=== PATIENT | male | born 1975 | race Caucasian/White ===

== ENCOUNTER 2017-09-18 18:06 | Emergency (ER) | payer MEDICARE, OTHER ==
[~2017-09-18] VITALS: Ht 177.8 cm; Wt 77.0 kg
[~2017-09-18 18:06] MED LIST: BUPR150T26 PO; CLIN-79 PO; TRAZ-143 PO
[2017-09-18 18:40] VITALS: BP 134/90
== END 2017-09-18 21:24 | disposition home or self-care (01) ==
LOC: ER 18:07
DX: S00.83XA Contusion of other part of head, initial encounter (principal); G43.909 Migraine, unspecified, not intractable, without status migrainosus; G89.29 Other chronic pain; F12.10 Cannabis abuse, uncomplicated; F15.10 Other stimulant abuse, uncomplicated; Z59.0 Homelessness; Y04.8XXA Assault by other bodily force, initial encounter; Y93.89 Activity, other specified; Y92.89 Other specified places as the place of occurrence of the external cause; Y99.8 Other external cause status
CPT/HCPCS: 70150; 99284

== ENCOUNTER 2018-09-07 11:04 | Emergency (ER) | payer MEDICARE, MEDICAID ==
[~2018-09-07] VITALS: Ht 177.8 cm; Wt 75.3 kg
[~2018-09-07 11:04] MED LIST changes: -CLIN-79 PO; +CLIN150C8 PO; -TRAZ-143 PO; +TRAZ-218 PO
[2018-09-07 11:19] VITALS: BP 119/73
--- NOTE | 2018-09-07 12:25 | NUR ---
Patient given a new pair of socks, We did not have shoes available for patient.
== END 2018-09-07 12:36 | disposition home or self-care (01) ==
LOC: ER 11:04
DX: M79.672 Pain in left foot (principal); M79.671 Pain in right foot; G43.909 Migraine, unspecified, not intractable, without status migrainosus; G89.29 Other chronic pain; F12.90 Cannabis use, unspecified, uncomplicated; F15.90 Other stimulant use, unspecified, uncomplicated; F14.90 Cocaine use, unspecified, uncomplicated; Z91.018 Allergy to other foods; Z79.899 Other long term (current) drug therapy; Z59.0 Homelessness
CPT/HCPCS: 99281

== ENCOUNTER 2018-12-22 02:59 | Emergency (ER) | payer MEDICARE, MEDICAID ==
[~2018-12-22] VITALS: Ht 177.8 cm; Wt 79.0 kg
[~2018-12-22 02:59] MED LIST changes: -TRAZ-218 PO; +TRAZ-251 PO
[2018-12-22 03:08] VITALS: BP 145/96
--- NOTE | 2018-12-22 03:42 | NUR ---
wound irrigated and dermabond applied to left forehead per Dr. Watson's request
== END 2018-12-22 04:02 | disposition home or self-care (01) ==
LOC: ER 03:00
DX: S01.81XA Laceration without foreign body of other part of head, initial encounter (principal); G43.909 Migraine, unspecified, not intractable, without status migrainosus; G89.29 Other chronic pain; F41.9 Anxiety disorder, unspecified; F31.9 Bipolar disorder, unspecified; F41.0 Panic disorder [episodic paroxysmal anxiety]; F20.9 Schizophrenia, unspecified; F12.90 Cannabis use, unspecified, uncomplicated; F15.90 Other stimulant use, unspecified, uncomplicated; F14.90 Cocaine use, unspecified, uncomplicated; Z59.0 Homelessness; Z88.8 Allergy status to other drugs, medicaments and biological substances; Z79.2 Long term (current) use of antibiotics; Z79.899 Other long term (current) drug therapy; Y04.0XXA Assault by unarmed brawl or fight, initial encounter; Y93.89 Activity, other specified; Y92.89 Other specified places as the place of occurrence of the external cause; Y99.8 Other external cause status
CPT/HCPCS: 12011; 99283

== ENCOUNTER 2019-08-28 14:07 | Emergency (ER) | payer MEDICARE, MEDICAID ==
[~2019-08-28] VITALS: Ht 177.8 cm; Wt 79.0 kg
[2019-08-28 14:12] VITALS: BP 121/76
[2019-08-28] MEDS ORDERED: NAPR-56 PO (15:13)
== END 2019-08-28 15:37 | disposition home or self-care (01) ==
LOC: ER 14:07
DX: S00.12XA Contusion of left eyelid and periocular area, initial encounter (principal); S00.31XA Abrasion of nose, initial encounter; S00.81XA Abrasion of other part of head, initial encounter; G89.29 Other chronic pain; F41.9 Anxiety disorder, unspecified; F31.9 Bipolar disorder, unspecified; F20.9 Schizophrenia, unspecified; F12.90 Cannabis use, unspecified, uncomplicated; F15.90 Other stimulant use, unspecified, uncomplicated; Z98.890 Other specified postprocedural states; Z59.0 Homelessness; Z91.018 Allergy to other foods; Z79.2 Long term (current) use of antibiotics; Z79.899 Other long term (current) drug therapy; Y04.2XXA Assault by strike against or bumped into by another person, initial encounter; Y93.89 Activity, other specified; Y92.410 Unspecified street and highway as the place of occurrence of the external cause; Y99.8 Other external cause status
CPT/HCPCS: 99282

== ENCOUNTER 2020-06-13 22:17 | Emergency (ER) | payer MEDICARE, MEDICAID | END 2020-06-13 22:40 | disposition left against medical advice (07) | LOC: ER 22:18 | DX: Z00.00 Encounter for general adult medical examination without abnormal findings (principal); Z53.21 Procedure and treatment not carried out due to patient leaving prior to being seen by health care provider ==

== ENCOUNTER 2020-10-17 00:34 | Emergency (ER) | payer MEDICARE, MEDICAID ==
[~2020-10-17] VITALS: Ht 177.8 cm; Wt 81.5 kg
[2020-10-17] MEDS ORDERED: morphine 5 MG/ML injection IM ONE (03:55)
[2020-10-17] MEDS ORDERED: CYCL-1 PO (03:59)
[2020-10-17] MEDS ORDERED: NAPR-56 PO (03:59)
[2020-10-17] MEDS ORDERED: cyclobenzaprine 10mg tablet PO ONE (04:00)
[2020-10-17] MEDS ORDERED: orphenadrine citrate 60mg/2ml inj. IM ONE (04:00)
[2020-10-17 04:21] VITALS: BP 130/72
[2020-10-17] MEDS ORDERED: morphine 10mg/ml inj. IV ONE (04:25)
[2020-10-17] MEDS ORDERED: morphine 10mg/ml inj. IM ONE (04:45)
[2020-10-17] MEDS ORDERED: ondansetron 4mg rapidly disintigrating tab PO ONE (05:00)
== END 2020-10-17 05:00 | disposition home or self-care (01) ==
LOC: ER 00:35
DX: M54.41 Lumbago with sciatica, right side (principal); F12.90 Cannabis use, unspecified, uncomplicated; F11.90 Opioid use, unspecified, uncomplicated; F15.10 Other stimulant abuse, uncomplicated; G43.909 Migraine, unspecified, not intractable, without status migrainosus; G89.29 Other chronic pain; Z87.442 Personal history of urinary calculi; Z86.19 Personal history of other infectious and parasitic diseases; Z91.018 Allergy to other foods; Z79.2 Long term (current) use of antibiotics; Z79.899 Other long term (current) drug therapy
CPT/HCPCS: 96372; 99284; J2270; J2360

== ENCOUNTER 2024-03-14 15:01 | Emergency (ER) | payer BC, MEDICAID ==
[~2024-03-14] VITALS: Ht 177.8 cm; Wt 81.8 kg
[~2024-03-14 15:01] MED LIST changes: +CLIN-214 PO; -CLIN150C8 PO; +CYCL-1 PO
[2024-03-14 15:03] VITALS: BP 153/96; PULSE 98; RESP 16; TEMP 97.2; O2SAT 98
[2024-03-14] MEDS: LIDOcaine 1% 30ml preserv. free vial SQ STA (15:48)
== END 2024-03-14 17:23 | disposition home or self-care (01) ==
LOC: ER 15:02
DX: S61.213A Laceration without foreign body of left middle finger without damage to nail, initial encounter (principal); G89.29 Other chronic pain; F20.9 Schizophrenia, unspecified; F31.9 Bipolar disorder, unspecified; F12.90 Cannabis use, unspecified, uncomplicated; F15.90 Other stimulant use, unspecified, uncomplicated; F14.90 Cocaine use, unspecified, uncomplicated; Z91.018 Allergy to other foods; Z79.899 Other long term (current) drug therapy; Z98.890 Other specified postprocedural states; W29.3XXA Contact with powered garden and outdoor hand tools and machinery, initial encounter; Y93.89 Activity, other specified; Y92.89 Other specified places as the place of occurrence of the external cause; Y99.8 Other external cause status
CPT/HCPCS: 12002; 73130; 99283; A6258

== ENCOUNTER 2024-03-26 15:13 | Emergency (ER) | payer BC, MEDICAID ==
[~2024-03-26] VITALS: Ht 177.8 cm; Wt 81.0 kg
[2024-03-26 15:28] VITALS: BP 120/70; PULSE 81; RESP 16; O2SAT 99
[2024-03-26 16:17] VITALS: TEMP 98.1
== END 2024-03-26 16:20 | disposition home or self-care (01) ==
LOC: ER 15:14
DX: S61.215D Laceration without foreign body of left ring finger without damage to nail, subsequent encounter (principal); X58.XXXD Exposure to other specified factors, subsequent encounter; F20.9 Schizophrenia, unspecified; F41.9 Anxiety disorder, unspecified; F32.A Depression, unspecified; F41.0 Panic disorder [episodic paroxysmal anxiety]; G89.29 Other chronic pain; M54.9 Dorsalgia, unspecified; F12.90 Cannabis use, unspecified, uncomplicated; F15.90 Other stimulant use, unspecified, uncomplicated; F14.90 Cocaine use, unspecified, uncomplicated; Z59.00 Homelessness unspecified; Z79.899 Other long term (current) drug therapy; Z98.890 Other specified postprocedural states; Z91.018 Allergy to other foods
CPT/HCPCS: 99281

== ENCOUNTER 2025-02-04 20:37 | Emergency (ER) | payer BC, MEDICAID ==
[~2025-02-04] VITALS: Ht 177.8 cm; Wt 81.8 kg
[~2025-02-04 20:37] MED LIST changes: -BUPR150T26 PO; +[UNRECOGNIZED DRUG - CODE] PO
--- NOTE | 2025-02-04 20:58 | Physician Documentation ---
History of Present Illness ~ Chief Complaint: Medical Clearance Stated Complaint: MED CLEARANCE Time Seen by MD: 20:53 Primary Medical Doctor: PEDRO DAILEY HPI 49-year-old male presents to the ED requesting medical clearance to go to [facility] secondary to ongoing meth addiction. He states the last time he used was this morning. Denies any chest pain shortness of breath nausea vomiting. Vitals are reassuring and in within normal limits Tetanus within 5 years?: Yes Medication Reconciliation Allergies: Coded Allergies: avocado (Verified Allergy, Severe, 03/14/24) Scheduled Bupropion HCl (Bupropion Xl), 150 MG PO QAM Clindamycin HCl (Clindamycin HCl CAPSULE), 2 CAP PO Q6H Cyclobenzaprine* (Cyclobenzaprine*), 1 TAB PO HS Scheduled PRN Trazodone HCl (Trazodone HCl), 50 MG PO HSMR1 PRN for s Past Medical History Past Medical History: Headache, Migraine, Vertigo, Hepatitis C, Hernia, Kidney Stones, Chronic Back Pain, Anxiety, Bipolar, Depression, Panic Disorder, Psychosis, Schizophrenia Past Surgical History: other Other Past Surgical History: hernia repair Patient History: (CVA) Cerebrovascular accident MOTHER, Onset:50's - 60 FH: suicide FATHER (AGE: 50'S) Alcohol Use: Rarely Drug Use: marijuana, methamphetamine, cocaine Lives with: Other Lives In: Homeless Occupation: disabled Review of Systems All Other Systems at this time: Reviewed and Negative ROS As stated above in the HPI, otherwise all systems are reviewed and negative. Physical Exam Vital Signs: Temperature: 97.7, Heart Rate: 94, Respiratory Rate: 16, BP: 123/88, Pulse Oximetry: 99, Weight: 81.820 Oxygen Flow Rate: 0 Physical Exam General: Alert, no apparent distress. Respiratory: Lungs clear, no respiratory distress. Cardiovascular: Regular rate and rhythm, no murmurs. Gastrointestinal: Soft, nontender, nondistended. Bowels sounds present. Neurologic: Oriented x4. Psychiatric: Normal mood and affect. Skin: Normal color, warm and dry. No edema, no ecchymosis. Progress Results/Orders Results/Orders Vital Signs 02/04/25 20:40 Temp 97.7 Pulse 94 Resp 16 B/P (MAP) 123/88 Pulse Ox 99 O2 Flow Rate 0 Medical Decision Making Findings Patient does not present acutely under the influence of methamphetamine. He has no other associated symptoms and presents as a safe medical clearance Differential Dx:Considerations: Include: Intoxication-Alcohol, Intoxication- Other drug, Personality disorder, Substance abuse disorder, Acute delirium, Closed head injury, Cervical spine injury, Skull fracture, Fracture(s), Abrasion, Contusion, Foreign body, Hematoma, Laceration, Alcohol withdrawl syndrom, Encephalopathy, Hepatitis, Medically stable, Other Departure Disposition: 01 HOME / SELF CARE / HOMELESS Impression: Primary Impression: General medical exam Additional Impression: Methamphetamine abuse Condition: Stable Discharge Instructions: Medical Screening Exam Additional Instructions: Medically cleared to go to [facility] Referrals: NO PRIMARY CARE PROVIDER (PCP) Signature Scribe Signature: y Attestation: Scribed for See Preston [employer] Installation Helper by See Isbell NP . 02/04/25 20:58 SEE PRESTON NP Feb 04, 2025 20:58
[2025-02-04 21:03] VITALS: BP 122/80; PULSE 90; RESP 18; TEMP 98.6; O2SAT 99
== END 2025-02-04 21:05 | disposition home or self-care (01) ==
LOC: ER 20:38
DX: Z00.00 Encounter for general adult medical examination without abnormal findings (principal); F15.20 Other stimulant dependence, uncomplicated; F41.9 Anxiety disorder, unspecified; F20.9 Schizophrenia, unspecified; F31.9 Bipolar disorder, unspecified; F12.90 Cannabis use, unspecified, uncomplicated; Z88.8 Allergy status to other drugs, medicaments and biological substances; Z98.890 Other specified postprocedural states
CPT/HCPCS: 99281

== ENCOUNTER 2025-02-13 12:01 | Emergency (ER) | payer BC, MEDICAID ==
[~2025-02-13] VITALS: Ht 177.8 cm; Wt 85.9 kg
[2025-02-13 12:13] VITALS: TEMP 97.9
--- NOTE | 2025-02-13 14:00 | Physician Documentation ---
History of Present Illness ~ Chief Complaint: Medical Clearance Stated Complaint: FEELING SICK Time Seen by MD: 13:30 Primary Medical Doctor: PEDRO DE LA TORRE This is a 49-year-old male who presents requesting medical clearance to enter a rehab program for methamphetamine abuse, patient reports most recent methamphetamine use was yesterday. Patient reports that he has been experien cing vomiting and diarrhea over the past 2-3 days though last episode of vomiting was 4:00 a.m. this morning and he is able to keep food and drink down. Patient additionally reports he recently had a abscess in his mouth that was spontaneously draining though it is no longer present. Patient reports feeling otherwise well with no other acute symptoms or concerns. Patient reports no use of opioids or alcohol. Tetanus within 5 years?: Yes Medication Reconciliation Allergies: Coded Allergies: avocado (Verified Allergy, Severe, 02/13/25) Scheduled Bupropion HCl (Bupropion Xl), 150 MG PO QAM Clindamycin HCl (Clindamycin HCl CAPSULE), 2 CAP PO Q6H Cyclobenzaprine* (Cyclobenzaprine*), 1 TAB PO HS Scheduled PRN ONDANSETRON ODT 4mg tablet (Ondansetron Odt), 1 TAB PO Q6H PRN PRN for nausea/vomiting Trazodone HCl (Trazodone HCl), 50 MG PO HSMR1 PRN for s Past Medical History Past Medical History: Headache, Migraine, Vertigo, Hepatitis C, Hernia, Kidney Stones, Chronic Back Pain, Anxiety, Bipolar, Depression, Panic Disorder, Psychosis, Schizophrenia Past Surgical History: other Other Past Surgical History: hernia repair Patient History: (CVA) Cerebrovascular accident MOTHER, Onset:50's - 60 FH: suicide FATHER (AGE: 50'S) Alcohol Use: Rarely Drug Use: marijuana, methamphetamine, cocaine Lives with: Other Lives In: Homeless Occupation: disabled Review of Systems ROS As stated above in the HPI, otherwise all systems are reviewed and negative. Physical Exam Vital Signs: Temperature: 97.9, Source: Temporal, Heart Rate: 100, Respiratory Rate: 16, BP: 109/76, Pulse Oximetry: 97, Weight: 85.900 Oxygen Flow Rate: 0 Physical Exam VITALS: Reviewed and as above. GENERAL: Alert, nontoxic appearing, no apparent distress. HEENT: PERRLA, EOMI, No facial swelling, no submandibular swelling, no elevation of the tongue, evidence of swelling to the gums RESPIRATORY: No increased work of breathing, no respiratory distress, speaking in full clear sentences CHEST: Nontender to palpation CV: Rhythm no murmur BACK: No CVA tenderness GI: Soft, nontender, nondistended, no rebound, no guarding MUSCULOSKELETAL: SKIN: Warm and dry NEURO: GCS 15 PSYCH: Stating no SI or HI Progress Results/Orders Results/Orders Completed Orders - PHANI MCGREGOR WATCH DIAL MAKER Ondansetron Disint. Tablet (Zofran Odt T (02/13/25 14:10) Vital Signs 02/13/25 02/13/25 12:13 14:19 Temp 97.9 Pulse 100 100 Resp 16 18 B/P (MAP) 109/76 110/75 Pulse Ox 97 100 O2 Flow Rate 0 Medical Decision Making Findings This 49-year-old male with a history of methamphetamine abuse presented requesting medical clearance to enter rehab program for methamphetamine abuse, other than some nausea and vomiting recently patient reports feeling otherwise well, it is reassuring patient is able to keep food and drink down and last episode of vomiting was several hours ago. Patient provided medication for nausea and vomiting. As patient reports no use of opioids or alcohol I have low suspicion for risk of withdrawal. Physical exam was benign and patient is well- appearing and appropriate for outpatient follow up and is medically cleared to enter his rehab/detox program. Patient provided home care instructions, follow up instructions, and return to care precautions which he verbalized understanding of. Differential Dx:Considerations: Include: Intoxication-Alcohol, Intoxication- Other drug, Substance abuse disorder, Alcohol withdrawl syndrom, Other (Gastritis, bowel obstruction, cyclic vomiting syndrome,) Departure Time of Disposition: 14:03 Disposition: 01 HOME / SELF CARE / HOMELESS Impression: Primary Impression: Vomiting and diarrhea Additional Impressions: General medical exam History of methamphetamine abuse Condition: Improved Discharge Instructions: Diarrhea, Adult, Medical Screening Exam, Vomiting, Adult Additional Instructions: Please use the prescribed Zofran as needed for vomiting, continue to stay well hydrated and eat as tolerated. May continue to use the Pepto-Bismol for diarrhea as directed by [id number] packaging. A patient's department if your symptoms worsen or if you are unable to keep food and drink down. You are medically cleared to enter your detox/rehabilitation program. Please follow up with your primary care provider or the [facility] in the next few days. Please return to the emergency department for any new or worsening concerning symptoms. Referrals: NO PRIMARY CARE PROVIDER (PCP) Prescriptions ONDANSETRON ODT 4mg tablet (ONDANSETRON ODT) 4 Mg Tab.rapdis 1 TAB PO Q6H PRN PRN for nausea/vomiting for 4 Days, #16 TAB 0 Refills Prov: PHANI MCGREGOR 02/13/25 Education Educated: Patient Educated regarding: diagnosis, treatment, prognosis, need for follow up Signature Scribe Signature: No scribe Attestation: The note accurately reflects work and decisions made by me.RUTH Mckeon 02/14/25 10:27 PHANI MCGREGOR Feb 13, 2025 14:00
[2025-02-13] MEDS ORDERED: ONDA-243 PO (14:06)
[2025-02-13] MEDS: ondansetron 4mg rapidly disintigrating tab PO ONE (14:14)
[2025-02-13 14:19] VITALS: BP 110/75; PULSE 100; RESP 18; O2SAT 100
== END 2025-02-13 14:20 | disposition home or self-care (01) ==
LOC: ER 12:01
DX: Z00.00 Encounter for general adult medical examination without abnormal findings (principal); R11.10 Vomiting, unspecified; R19.7 Diarrhea, unspecified; F15.10 Other stimulant abuse, uncomplicated; G43.909 Migraine, unspecified, not intractable, without status migrainosus; F41.9 Anxiety disorder, unspecified; F12.90 Cannabis use, unspecified, uncomplicated; F14.90 Cocaine use, unspecified, uncomplicated; F20.9 Schizophrenia, unspecified; F31.9 Bipolar disorder, unspecified; G89.29 Other chronic pain; Z87.442 Personal history of urinary calculi; Z86.19 Personal history of other infectious and parasitic diseases; Z98.890 Other specified postprocedural states; Z79.899 Other long term (current) drug therapy; Z91.018 Allergy to other foods; Z59.00 Homelessness unspecified
CPT/HCPCS: 99283

== ENCOUNTER 2025-02-19 12:02 | Emergency (ER) | payer BC, MEDICAID ==
[~2025-02-19] VITALS: Ht 177.8 cm; Wt 81.8 kg
[~2025-02-19 12:02] MED LIST changes: +ONDA-243 PO
[2025-02-19 12:24] VITALS: BP 126/78; PULSE 95; RESP 18; O2SAT 98
--- NOTE | 2025-02-19 13:01 | Physician Documentation ---
History of Present Illness ~ Chief Complaint: Medical Clearance Stated Complaint: MED CLEARANCE Time Seen by MD: 12:54 OK to notify your PCP?: Yes Primary Medical Doctor: PEDRO DAILEY Source: patient Mode of Arrival: POV Exam Limitations: no limitations HPI This is a 49-year-old male who comes in requesting medical clearance for a detox facility. The patient states he is detoxing off methamphetamine in the last time use was yesterday. He denies using any other substances. He denies any significant past medical history of surgeries in the past. No allergies to medicines. Currently states he feels fine. The patient is trying to get into the [facility] Tetanus within 5 years?: Yes Medication Reconciliation Allergies: Coded Allergies: avocado (Verified Allergy, Severe, 02/13/25) Scheduled Bupropion HCl (Bupropion Xl), 150 MG PO QAM Clindamycin HCl (Clindamycin HCl CAPSULE), 2 CAP PO Q6H Cyclobenzaprine* (Cyclobenzaprine*), 1 TAB PO HS Scheduled PRN ONDANSETRON ODT 4mg tablet (Ondansetron Odt), 1 TAB PO Q6H PRN PRN for nausea/vomiting Trazodone HCl (Trazodone HCl), 50 MG PO HSMR1 PRN for s Past Medical History Past Medical History: Headache, Migraine, Vertigo, Hepatitis C, Hernia, Kidney Stones, Chronic Back Pain, Anxiety, Bipolar, Depression, Panic Disorder, Psychosis, Schizophrenia Past Surgical History: other Other Past Surgical History: hernia repair Patient History: (CVA) Cerebrovascular accident MOTHER, Onset:50's - 60 FH: suicide FATHER (AGE: 50'S) Alcohol Use: Rarely Drug Use: marijuana, methamphetamine, cocaine Lives with: Other Lives In: Homeless Occupation: disabled Physical Exam Vital Signs: Temperature: 97.8, Source: Temporal, Heart Rate: 95, Respiratory Rate: 18, BP: 126/78, Pulse Oximetry: 98, Weight: 81.820 Oxygen Flow Rate: 0 Pulse Oximetry Reflects: adequate oxygenation General Appearance: alert, WD/WN, no apparent distress Head: no evidence of injury Face: normal Pupils/EOM/Fundus: PERRLA Neck: full range of motion Respiratory: no respiratory distress Chest: no accessory muscle use Cardiovascular: no edema, no JVD Neurologic: oriented x4, bee worker II-XII nml as tested, memory intact, oriented to time, oriented to person, oriented to place, oriented to events Motor / Sensory: no motor deficit, no sensory deficit Cerebellar Function: normal Coordination / Gait: normal gait Affect: appropriate Appearance/Memory/Insight: appropriate appearance, appropriate insight, neat, no memory impairment, denies illness Thoughts/Hallucinations: normal thought pattern, no apparent hallucination Behavior/Eye contact/Speech: cooperative, good eye contact, normal speech Progress Results/Orders Results/Orders Vital Signs 02/19/25 02/19/25 12:24 13:16 Temp 97.8 97.8 Pulse 95 Resp 18 B/P (MAP) 126/78 Pulse Ox 98 O2 Flow Rate 0 Medical Decision Making Findings Clinically the patient is well-appearing and has a apparent distress. His physical examination is within normal limits. Vital signs are within normal limits as well. I am going to medically clear him for the [facility] Differential Diagnosis Exam for medical clearance. Methamphetamine abuse. Departure Disposition: HOME / SELF CARE / HOMELESS Impression: Primary Impression: History of methamphetamine abuse Condition: Stable Discharge Instructions: Medical Screening Exam Additional Instructions: Frederic Gillis has been medically evaluated in his cleared for a rehab facility. Referrals: NO PRIMARY CARE PROVIDER (PCP) Signature Scribe Signature: No scribe Attestation: The note accurately reflects work and decisions made by me.Ludwig MCCULLOUGH 02/19/25 13:01 LUDWIG RENTERIA Feb 19, 2025 13:01 LIZETT GALICIA MD Feb 20, 2025 07:45
[2025-02-19 13:16] VITALS: TEMP 97.8
== END 2025-02-19 13:19 | disposition home or self-care (01) ==
LOC: ER 12:02
DX: Z00.00 Encounter for general adult medical examination without abnormal findings (principal); F31.9 Bipolar disorder, unspecified; F20.9 Schizophrenia, unspecified; G43.909 Migraine, unspecified, not intractable, without status migrainosus; F41.9 Anxiety disorder, unspecified; F12.90 Cannabis use, unspecified, uncomplicated; F15.90 Other stimulant use, unspecified, uncomplicated; G89.29 Other chronic pain; Z86.19 Personal history of other infectious and parasitic diseases; I63.9 Cerebral infarction, unspecified; Z98.890 Other specified postprocedural states; Z87.442 Personal history of urinary calculi; Z91.018 Allergy to other foods; Z59.02 Unsheltered homelessness
CPT/HCPCS: 99282

== ENCOUNTER 2025-05-13 08:59 | Emergency (ER) | payer BC, MEDICAID ==
[~2025-05-13] VITALS: Ht 177.8 cm; Wt 90.9 kg
[2025-05-13 09:04] VITALS: BP 131/85; PULSE 90; RESP 16; O2SAT 99
--- NOTE | 2025-05-13 09:31 | Physician Documentation ---
History of Present Illness ~ Chief Complaint: Medical Clearance Stated Complaint: MED CLEARANCE Time Seen by MD: 09:05 Primary Medical Doctor: PEDRO DE LA TORRE 49-year-old male who presents to the ED requesting medical clearance secondary to chronic methamphetamine use. He states last time he used with a yesterday and has been using methamphetamine for an extended period of time denies any cardiac history. States he wants to go to [facility] Day of Onset: May 13, 2025 Tetanus within 5 years?: Yes Medication Reconciliation Allergies: Coded Allergies: avocado (Verified Allergy, Severe, 05/13/25) Scheduled Bupropion HCl (Bupropion Xl), 150 MG PO QAM Clindamycin HCl (Clindamycin HCl CAPSULE), 2 CAP PO Q6H Cyclobenzaprine* (Cyclobenzaprine*), 1 TAB PO HS Scheduled PRN ONDANSETRON ODT 4mg tablet (Ondansetron Odt), 1 TAB PO Q6H PRN PRN for nausea/vomiting Trazodone HCl (Trazodone HCl), 50 MG PO HSMR1 PRN for s Past Medical History Past Medical History: Headache, Migraine, Vertigo, Hepatitis C, Hernia, Kidney Stones, Chronic Back Pain, Anxiety, Bipolar, Depression, Panic Disorder, Psychosis, Schizophrenia Past Surgical History: other Other Past Surgical History: hernia repair Patient History: (CVA) Cerebrovascular accident MOTHER, Onset:50's - 60 FH: suicide FATHER (AGE: 50'S) Alcohol Use: Rarely Drug Use: marijuana, methamphetamine, cocaine Lives with: Other Lives In: Homeless Occupation: disabled Physical Exam Vital Signs: Temperature: 97.6, Source: Temporal, Heart Rate: 90, Respiratory Rate: 16, BP: 131/85, Pulse Oximetry: 99, Weight: 90.900 Oxygen Flow Rate: 0 Physical Exam General: Alert, no apparent distress. HEENT: PERRL, EOMI, no injection, moist mucous membranes. Neck: Full range of motion. Respiratory: Lungs clear, no respiratory distress. Chest: No accessory muscle use. Cardiovascular: Regular rate and rhythm, no murmurs. Gastrointestinal: Soft, nontender, nondistended. Bowels sounds present. Extremities: Normal range of motion, no deformity. Neurologic: Oriented x4. Psychiatric: Normal mood and affect. Skin: Normal color, warm and dry. No edema, no ecchymosis. Progress Results/Orders Results/Orders Vital Signs 05/13/25 09:04 Temp 97.6 Pulse 90 Resp 16 B/P (MAP) 131/85 Pulse Ox 99 O2 Flow Rate 0 Medical Decision Making Additional information obtaine: old records Findings She does not present a acutely intoxicated on an influence of methamphetamine he is heart rate is below 100 . I feel comfortable discharging him with medical clearance for recovery Differential Dx:Considerations: Include: Intoxication-Alcohol, Intoxication- Other drug, Personality disorder, Substance abuse disorder, Acute delirium, Closed head injury, Cervical spine injury, Skull fracture, Fracture(s), Abrasi on, Contusion, Foreign body, Hematoma, Laceration, Alcohol withdrawl syndrom, Encephalopathy, Hepatitis, Medically stable, Other Departure Disposition: 01 HOME / SELF CARE / HOMELESS Impression: Primary Impression: History of methamphetamine abuse Condition: Improved Additional Instructions: medically clear for recovery Referrals: NO PRIMARY CARE PROVIDER (PCP) Education Educated: Patient Educated regarding: diagnosis Signature Scribe Signature: t Attestation: Scribed for See Farmer Billet Grinder by See Farmer - ROGER . 05/13/25 09:32 SEE FARMER NP May 13, 2025 09:31
[2025-05-13 09:41] VITALS: TEMP 97.6
== END 2025-05-13 09:43 | disposition home or self-care (01) ==
LOC: ER 09:00
DX: Z00.00 Encounter for general adult medical examination without abnormal findings (principal); F15.90 Other stimulant use, unspecified, uncomplicated; F12.90 Cannabis use, unspecified, uncomplicated; F14.90 Cocaine use, unspecified, uncomplicated; F20.9 Schizophrenia, unspecified; F31.9 Bipolar disorder, unspecified; F41.9 Anxiety disorder, unspecified; G89.29 Other chronic pain; G43.909 Migraine, unspecified, not intractable, without status migrainosus; Z86.19 Personal history of other infectious and parasitic diseases; Z87.442 Personal history of urinary calculi; Z98.890 Other specified postprocedural states; Z91.018 Allergy to other foods; Z79.899 Other long term (current) drug therapy; Z59.00 Homelessness unspecified; Z86.73 Personal history of transient ischemic attack (TIA), and cerebral infarction without residual deficits
CPT/HCPCS: 99282